=== PATIENT | female | born 1980 | race Caucasian/White ===

== ENCOUNTER → 2022-07-30 10:53 | Outpatient (BNVA) | payer MEDICAID, SELFPAY | PROVIDERS: Family Provider Family Medicine; PCP Family Medicine; Referring Provider Family Medicine; Visit Provider Anesthesiology Pain Medicine | DX: M54.16 Radiculopathy, lumbar region (principal) | CPT/HCPCS: 72110 ==

== ENCOUNTER 2022-10-16 07:58 | Outpatient (CLI) | payer MEDICAID, SELFPAY ==
--- NOTE | 2022-10-16 08:30 | CT_ITS ---
WS: [id number] CT LUMBAR SPINE, noncontrast. HISTORY: M54.16 - Radiculopathy, lumbar region TECHNIQUE: Contiguous 2.0 mm axial imaging are performed. Sagittal and coronal reformats are submitte d and reviewed. All CT scans at [facility] use at least one of these dose optimization techni ques: automated exposure control; mA and/or kV adjustment per patient size (includes targeted exams w here dose is matched to clinical indication); or iterative reconstruction. IV contrast: None DLP: 2017.23 mGy.cm COMPARISON: Lumbar spine radiograph 07/30/2022 Study is significantly compromised by body habitus. Posterior lumbar alignment is normal. No fractures. Advanced degenerative disc disease and endplate s clerosis at L5-S1. Osteophytes from L5 and S1 extend into the foramina bilaterally. No fractures. L1-2: Normal. L2-3: Normal. L3-4: Mild facet arthritis. L4-5: Mild annular disc bulging with ligamentum flavum and facet arthritis. There is a very shallow L EFT foraminal disc protrusion. No significant stenosis. There is bilateral mild foraminal stenosis an d mild facet arthritis. L5-S1: Marked osteophytic ridging encroaching into the ventral thecal sac, subarticular recesses and foramina. There is also bilateral facet joint arthritis. Hypertrophic bone formation greatest from th e RIGHT facet encroaching into the thecal sac. There is significant encroachment upon the L5 and S1 n erve roots bilaterally. Severe central, bilateral subarticular recess and foraminal stenosis. Visualized retroperitoneum is normal. CT/CT lumbar spine wo con* [id number] IMPRESSION: 1. Severe osseous stenosis at L5-S1. There are large osteophytes from the vert ebral bodies and facet joints causing severe central, bilateral subarticular re cess and foraminal stenosis. There is significant encroachment and contact on t he L5 and S1 nerve roots. 2. Shallow LEFT foraminal disc protrusion at L4-5 with only mild bilateral for aminal stenosis and facet arthritis.
== END 2022-10-16 07:59 | disposition home or self-care (01) ==
PROVIDERS: PCP Family Medicine; Visit Provider Anesthesiology Pain Medicine
DX: M54.16 Radiculopathy, lumbar region (principal); M48.07 Spinal stenosis, lumbosacral region; M51.26 Other intervertebral disc displacement, lumbar region
CPT/HCPCS: 72131